=== PATIENT | female | born 1980 | race Caucasian/White ===

== ENCOUNTER 2016-10-27 19:34 | Emergency (ER) | payer MEDICAID ==
[~2016-10-27] VITALS: Ht 175.3 cm; Wt 90.7 kg
[2016-10-27 20:05] VITALS: BP_SYST 157
[2016-10-27] MEDS ORDERED: IBUP-1480 PO (20:16)
[2016-10-27] MEDS ORDERED: MORPHINE 2 MG/ML INJ. SYRINGE IM ONE (20:30)
[2016-10-27 20:32] LABS: BASOPHILS # (AUTO) 0.1 K/uL (0.0-0.2); BASOPHILS % (AUTO) 1.7 % (0.0-2.0); EOSINOPHILS # (AUTO) 0.2 K/uL (0.0-0.4); HEMATOCRIT 39.3 % (36-48); HEMOGLOBIN 13.3 g/dL (12.0-16.0); LYMPHOCYTES % (AUTO) 24.1 % (20.5-51.5); MEAN CORPUSCULAR HEMOGLOBIN 31 pg (27-31); MEAN CORPUSCULAR HGB CONC 34 % (32-36); MEAN CORPUSCULAR VOLUME 93 fL (79.0-98.0); MONOCYTES # (AUTO) 0.7 K/uL (0.0-1.0); MONOCYTES % (AUTO) 8.4 % (1.7-9.3); NEUTROPHILS # (AUTO) 5.2 K/uL (1.8-7.7); NEUTROPHILS % (AUTO) 63.8 % (40.0-70.0); PLATELET COUNT (AUTO) 303 K/uL (130-430); RED BLOOD CELL COUNT(AUTO) 4.24 MIL/uL (4.2-6.2); RED CELL DISTRIBUTION WIDTH 12.2 % (9.0-15.0); WHITE BLOOD COUNT (AUTO) 8.2 K/uL (4.8-10.8)
[2016-10-27] MEDS ORDERED: ALLOPURINOL 300 MG TABLET (ZYLOPRIM) PO ONE (21:00)
[2016-10-27] MEDS ORDERED: ALLOPURINOL 300 MG TABLET (ZYLOPRIM) ONE (21:19)
[2016-10-27 21:30] VITALS: BP_SYST 147
== END 2016-10-27 21:30 | disposition home or self-care (01) ==
LOC: SED 19:34
DX: M10.072 Idiopathic gout, left ankle and foot (principal); R19.7 Diarrhea, unspecified
CPT/HCPCS: 36415; 84550; 85025; 96372; 99284; J2270

== ENCOUNTER 2020-03-04 13:04 | Emergency (ER) | payer MEDICAID ==
[~2020-03-04] VITALS: Ht 177.8 cm; Wt 108.9 kg
[~2020-03-04 13:04] MED LIST: IBUP-1970 PO
[2020-03-04 13:11] VITALS: BP_SYST 163
--- NOTE | 2020-03-04 13:15 | NUR ---
Patient to ER bed 6 to gown for evaluation. Side rails up. Report given to Vania SNOW.
--- NOTE | 2020-03-04 13:20 | NUR ---
pt arrives from home w/ c/o left foot pain 10/10, sharp, constant. Pt states she has gout. Pt denies any trauma to the foot. Does not see her PMD, and is not on any maintanence meds for gout.
--- NOTE | 2020-03-04 13:28 | NUR ---
ER Dr. Downey at bedside examining patient.
--- NOTE | 2020-03-04 13:55 | NUR ---
# 20 gauge angiocath placed to RAC. Use of asceptic technique. Opsite placed over site. Blood return noted. Flushed with 10 cc of normal saline. No evidence of infiltration noted. Patient tolerated well.
[2020-03-04] MEDS ORDERED: CEFAZOLIN 1 GM IVPB PREMIX 50 ML IV ONE (14:00)
[2020-03-04] MEDS ORDERED: VANCOMYCIN HCL 1,000 MG in NS 250 ML IV ONE (14:00)
[2020-03-04] MEDS ORDERED: KETOROLAC TROMETHAMINE 30 MG VIAL IVP ONE (14:00)
[2020-03-04] MEDS ORDERED: VANCOMYCIN HCL 1000 MG/VIAL IV ONE (14:22)
[2020-03-04 16:32] VITALS: BP_SYST 163
--- NOTE | 2020-03-04 16:33 | NUR ---
Patient given written and verbal discharge instructions and verbalizes understanding. ER MD discussed with patient the results and treatment provided. Patient in stable condition. ID arm band removed. IV catheter removed intact and dressing applied, no active bleeding. Rx of [place], Allopurinol, Colchicine, Ibuprofen, Bactrim, and Augmentin given. Patient educated on pain management and to follow up with PMD. Pain Scale 0/10. Opportunity for questions provided and answered. Medication side effect fact sheet provided.
== END 2020-03-04 16:33 | disposition home or self-care (01) ==
LOC: SED 13:04
DX: L03.116 Cellulitis of left lower limb (principal); M10.9 Gout, unspecified; E11.9 Type 2 diabetes mellitus without complications
CPT/HCPCS: 82962; 96365; 96366; 96368; 96375; 99284; J0690; J1885; J3370

== ENCOUNTER 2023-02-28 09:19 | Emergency (ER) | payer MEDICAID ==
[~2023-02-28] VITALS: Ht 175.3 cm; Wt 90.7 kg
[2023-02-28 09:34] VITALS: BP_SYST 133; PULSE 92; RESP 16; TEMP 97.7; O2SAT 98
[2023-02-28] MEDS ORDERED: HYDROcodone/ACETAMIN 10-325 MG TAB PO ONE (09:45)
[2023-02-28] MEDS ORDERED: KETOROLAC TROMETHAMINE 60 MG/2 ML VIAL IM ONE (09:45)
[2023-02-28] MEDS ORDERED: ALLO100T PO (09:47)
[2023-02-28] MEDS ORDERED: TRAM50TA2 PO (09:47)
[2023-02-28 10:25] VITALS: BP_SYST 145; PULSE 88; RESP 16; TEMP 97.2; O2SAT 98
== END 2023-02-28 10:26 | disposition home or self-care (01) ==
LOC: SED 09:19
DX: M10.9 Gout, unspecified (principal); M79.672 Pain in left foot; E11.9 Type 2 diabetes mellitus without complications; Z79.899 Other long term (current) drug therapy
CPT/HCPCS: 99283; 81025; 96372; J1885

== ENCOUNTER 2024-03-01 01:02 | Emergency (ER) | payer MEDICAID ==
[~2024-03-01] VITALS: Ht 175.3 cm; Wt 108.9 kg
[~2024-03-01 01:02] MED LIST changes: +ALLO100T PO; +TRAM50TA2 PO
[2024-03-01 01:29] VITALS: BP_SYST 160; PULSE 107; RESP 17; TEMP 98; O2SAT 100
[2024-03-01 02:21] LABS: BASOPHILS % (AUTO) 0.5 % (0.0-2.0); EOSINOPHILS # (AUTO) 0.3 K/uL (0.0-0.4); HEMATOCRIT 37.5 % (36-48); HEMOGLOBIN 13.3 g/dL (12.0-16.0); LYMPHOCYTES # (AUTO) 2.8 K/uL (1.0-5.5); LYMPHOCYTES % (AUTO) 30.2 % (20.5-51.5); MEAN CORPUSCULAR HEMOGLOBIN 33 pg (27-31); MEAN CORPUSCULAR HGB CONC 35 % (32-36); MEAN CORPUSCULAR VOLUME 92 fL (79.0-98.0); MONOCYTES # (AUTO) 0.6 K/uL (0.0-1.0); MONOCYTES % (AUTO) 6.3 % (1.7-9.3); NEUTROPHILS # (AUTO) 5.6 K/uL (1.8-7.7); PLATELET COUNT (AUTO) 309 K/uL (130-430); RED BLOOD CELL COUNT(AUTO) 4.07 MIL/uL (4.2-6.2); RED CELL DISTRIBUTION WIDTH 13.7 % (9.0-15.0); WHITE BLOOD COUNT (AUTO) 9.3 K/uL (4.8-10.8)
[2024-03-01 02:33] LABS: BILIRUBIN,URINE NEGATIVE (NEGATIVE); BLOOD, URINE NEGATIVE (NEGATIVE); COLOR,URINE YELLOW (YELLOW); GLUCOSE,URINE NEGATIVE (NEGATIVE); KETONES,URINE NEGATIVE (NEGATIVE); LEUKOCYTE ESTERASE ,URINE 1+ (NEGATIVE); NITRITE, URINE POSITIVE (NEGATIVE); PROTEIN URINE NEGATIVE (NEGATIVE); UROBILINOGEN,URINE 0.2 (0.2-1.0)
[2024-03-01 02:40] LABS: ALBUMIN 3.5 g/dL (3.4-4.8); BILIRUBIN,DIRECT 0.1 mg/dL (0.0-0.3); CALCIUM 9.3 mg/dL (8.4-11.0); CREATININE 1.04 mg/dL (0.55-1.30); POTASSIUM 4.1 mmol/L (3.5-5.1); TOTAL BILIRUBIN 0.2 mg/dL (0.0-1.0); TOTAL PROTEIN, SERUM 7.1 g/dL (6.4-8.3)
[2024-03-01 03:05] LABS: CLARITY/URINE SLIGHTLY CLOUDY (CLEAR)
[2024-03-01 03:11] LABS: BACTERIA,URINE MANY /HPF (None Seen); RBC,URINE 0-3 /HPF (0-3); WBC,URINE 20-50 /HPF (0-3)
[2024-03-01] MEDS ORDERED: CEPH-548 PO (03:42)
[2024-03-01] MEDS: cefTRIAXone 1 GM in D5W 50 ML IV ONE (04:16)
[2024-03-01 04:21] VITALS: BP_SYST 158; PULSE 18; RESP 18; TEMP 98; O2SAT 100
== END 2024-03-01 01:34 | disposition home or self-care (01) ==
LOC: SED 01:02
DX: L03.115 Cellulitis of right lower limb (principal); L03.116 Cellulitis of left lower limb; N39.0 Urinary tract infection, site not specified; E11.9 Type 2 diabetes mellitus without complications
CPT/HCPCS: 36415; 71045; 80048; 80076; 81000; 81001; 81015; 83605; 85025; 87040; 87086; 87186; 93970; 96374; 99285